=== PATIENT | male | born 1950 | race Caucasian/White ===

== ENCOUNTER 2021-03-22 09:52 | Emergency (ER) | payer MEDICARE, BC ==
[2021-03-22 12:21] LABS: CORONAVIRUS COVID-19 NAA NEGATIVE (NEGATIVE)
[2021-03-22 12:50] VITALS: BP 126/98; PULSE 114
== END 2021-03-22 12:56 | disposition home or self-care (01) ==
LOC: DL.ED 09:52
DX: J06.9 Acute upper respiratory infection, unspecified (principal); Z88.5 Allergy status to narcotic agent; Z88.8 Allergy status to other drugs, medicaments and biological substances; Z72.0 Tobacco use; Z79.899 Other long term (current) drug therapy; Z20.822 Contact with and (suspected) exposure to COVID-19
CPT/HCPCS: 0240U; 87081; 87430; 99283

== ENCOUNTER 2023-06-01 08:53 | Day surgery (SDC) | payer MEDICARE, BC ==
[2023-06-01] MEDS ORDERED: Sodium Chloride 0.9% 10 ML Syringe FLUSH PRN (09:00)
[2023-06-01] MEDS ORDERED: Acetaminophen/Codeine 300-30 MG Tab PO PRN (09:00)
[2023-06-01] MEDS ORDERED: Ondansetron 4 MG/2 ML SDV IVPUSH PRN (09:00)
[2023-06-01] MEDS ORDERED: Acetaminophen 325 MG Tab PO PRN (09:00)
[2023-06-01] MEDS: Proparacaine 0.5% Ophth Soln 15 ML Bottle EYELF ONE ×2 (09:01→09:44)
[2023-06-01] MEDS: Moxifloxacin 0.5% Ophth Soln 3 ML Bottle EYELF ONE (09:02)
[2023-06-01] MEDS: Povidone-Iodine 5% Sterile Ophth Soln 30 ML Bottle EYELF ONE ×2 (09:03→09:44)
[2023-06-01] MEDS: Phenylephrine 10% Ophth Soln 5 ML Bot EYELF ONE (09:04)
[2023-06-01] MEDS: Tropicamide 1% Ophth Soln 15 ML Bottle EYELF ONE (09:04)
[2023-06-01] MEDS: Cataract Ophth Solution EYELF ONE (09:06)
[2023-06-01] MEDS: Timolol Maleate 0.5% Ophth Soln 5 ML Bottle EYELF ONE (09:06)
[2023-06-01] MEDS: Diclofenac Sodium 0.1% Ophth Soln 5 ML Bottle EYELF ONE (09:45)
[2023-06-01] MEDS: Apraclonidine 0.5% Ophth Soln 5 ML Bot EYELF ONE (09:45)
[2023-06-01] MEDS: Dexamethasone/Neomycin/Polymyxin B Ophth Oint 3.5 GM Tube EYELF ONE (09:45)
[2023-06-01] MEDS: Lidocaine 1% 30 ML SDV INJECT ONE (09:45)
[2023-06-01] MEDS: Vancomycin 500 MG SDV EYELF ONE (09:45)
[2023-06-01 11:57] VITALS: BP 145/81; PULSE 66
== END 2023-06-01 10:35 | disposition home or self-care (01) ==
LOC: DL.SDS 08:53
PROVIDERS: ATTEND Ophthalmology
DX: H25.812 Combined forms of age-related cataract, left eye (principal); I10 Essential (primary) hypertension; E78.5 Hyperlipidemia, unspecified; F17.210 Nicotine dependence, cigarettes, uncomplicated; Z79.899 Other long term (current) drug therapy; Z88.5 Allergy status to narcotic agent; Z88.8 Allergy status to other drugs, medicaments and biological substances
CPT/HCPCS: A9270-GY; J3370; J3490; V2787-GY

== ENCOUNTER 2023-06-15 06:54 | Day surgery (SDC) | payer MEDICARE, BC ==
[2023-06-15] MEDS ORDERED: Acetaminophen/Codeine 300-30 MG Tab PO PRN (07:00)
[2023-06-15] MEDS ORDERED: Sodium Chloride 0.9% 10 ML Syringe FLUSH PRN (07:00)
[2023-06-15] MEDS ORDERED: Acetaminophen 325 MG Tab PO PRN (07:00)
[2023-06-15] MEDS ORDERED: Ondansetron 4 MG/2 ML SDV IVPUSH PRN (07:00)
[2023-06-15 07:17] VITALS: PULSE 65
[2023-06-15] MEDS: Proparacaine 0.5% Ophth Soln 15 ML Bottle EYERT ONE ×2 (07:20→08:17)
[2023-06-15] MEDS: Moxifloxacin 0.5% Ophth Soln 3 ML Bottle EYERT ONE (07:22)
[2023-06-15] MEDS: Povidone-Iodine 5% Sterile Ophth Soln 30 ML Bottle EYERT ONE ×2 (07:22→08:17)
[2023-06-15] MEDS: Tropicamide 1% Ophth Soln 15 ML Bottle EYERT ONE (07:23)
[2023-06-15] MEDS: Phenylephrine 10% Ophth Soln 5 ML Bot EYERT ONE (07:23)
[2023-06-15] MEDS: Cataract Ophth Solution EYERT ONE (07:24)
[2023-06-15] MEDS: Timolol Maleate 0.5% Ophth Soln 5 ML Bottle EYERT ONE (07:24)
[2023-06-15] MEDS: Dexamethasone/Neomycin/Polymyxin B Ophth Oint 3.5 GM Tube EYERT ONE (08:18)
[2023-06-15] MEDS: Lidocaine 1% 30 ML SDV INJECT ONE (08:18)
[2023-06-15] MEDS: Apraclonidine 0.5% Ophth Soln 5 ML Bot EYERT ONE (08:18)
[2023-06-15] MEDS: Diclofenac Sodium 0.1% Ophth Soln 5 ML Bottle EYERT ONE (08:18)
[2023-06-15] MEDS: Vancomycin 500 MG SDV EYERT ONE (08:18)
[2023-06-15 08:46] VITALS: BP 158/83
== END 2023-06-15 08:52 | disposition home or self-care (01) ==
LOC: DL.SDS 06:54
PROVIDERS: ATTEND Ophthalmology
DX: H26.8 Other specified cataract (principal); I25.10 Atherosclerotic heart disease of native coronary artery without angina pectoris; I10 Essential (primary) hypertension; E78.5 Hyperlipidemia, unspecified; F17.210 Nicotine dependence, cigarettes, uncomplicated; Z88.8 Allergy status to other drugs, medicaments and biological substances; Z88.5 Allergy status to narcotic agent; Z79.899 Other long term (current) drug therapy
CPT/HCPCS: 66982; A9270; J3370; J3490

== ENCOUNTER 2023-09-29 14:50 | Emergency (ER) | payer MEDICARE, BC ==
[2023-09-29 14:34] LABS: BASOPHILS PERCENT AUTO 0.6 % (0.0-1.0); EOSINOPHILS PERCENT AUTO 1.4 % (1.0-3.0); LYMPHOCYTES PERCENT AUTO 18.3 % (20.5-50.1); MEAN CORPUSCULAR HEMOGLOBIN 38.3 pg (27.0-34.0); MEAN CORPUSCULAR HGB CONC 31.9 g/dL (33.0-35.0); MONOCYTES PERCENT AUTO 9.3 % (2-8); NEUTROPHILS PERCENT AUTO 70.4 % (42.2-75.2); PLATELET COUNT,PLT 148 10^3/uL (150-450); RED BLOOD CELL COUNT 1.15 10^6/uL (4.6-6.2); WHITE BLOOD CELL COUNT,WBC 10.7 10^3/uL (5.0-10.0)
[2023-09-29] MEDS: Sodium Chloride 0.9% 500 ML IV SCH ×2 (14:39→15:50)
[2023-09-29 14:58] LABS: ALBUMIN 2.4 g/dL (3.4-5.0); ANION GAP 20.5 mEq/L (7-13); BILIRUBIN TOTAL 0.4 mg/dL (0.2-1.0); BUN/CREATININE RATIO 25.5 (No establ ref range); CALCIUM 8.4 mg/dL (8.5-10.1); CREATININE 1.96 mg/dL (0.70-1.30); EST CRCL DRUG DOSING (CG) 31.99 mL/min; POTASSIUM,K 3.5 mmol/L (3.5-5.1); PROTEIN TOTAL,TP 5.6 g/dL (6.4-8.2)
[2023-09-29 14:59] LABS: HEMATOCRIT 13.8 % (40.0-54.0); HEMOGLOBIN 4.4 g/dL (14.0-18.0)
[2023-09-29 15:02] LABS: A/G RATIO 0.75
[2023-09-29 15:06] LABS: INR 1.1 (0.9-1.2); PROTHROMBIN TIME 11.6 SEC (9.0-12.0)
[2023-09-29 16:12] LABS: APPEARANCE,URINE CLEAR (CLEAR); BILIRUBIN,URINE NEGATIVE (NEGATIVE); COLOR,URINE YELLOW (YELLOW); GLUCOSE,URINE NEGATIVE (NEGATIVE); KETONES,URINE NEGATIVE (NEGATIVE); LEUKOCYTE ESTERASE,URINE NEGATIVE (NEGATIVE); NITRITE,URINE NEGATIVE (NEGATIVE); OCCULT BLOOD,URINE SMALL (NEGATIVE); PH,URINE 6.5 (5.0-9.0); PROTEIN,URINE NEGATIVE (NEGATIVE); UROBILINOGEN,URINE 0.2 mg/dL (0.2-1.0)
[2023-09-29 16:20] LABS: WBC,URINE NOT SEEN /HPF (0-5/HPF)
[2023-09-29 16:21] LABS: BACTERIA,URINE RARE /HPF (0-FEW/HPF); EPITHELIAL CELLS,URINE RARE /HPF (NOT SEEN)
[2023-09-29] MEDS: fentaNYL 100 MCG/2 ML SDV IVPUSH ONE (16:54)
[2023-09-29 17:02] VITALS: BP 104/56; PULSE 85
== END 2023-09-29 16:55 ==
LOC: DL.ED 14:50
DX: D64.9 Anemia, unspecified (principal); I10 Essential (primary) hypertension; E78.00 Pure hypercholesterolemia, unspecified; J44.9 Chronic obstructive pulmonary disease, unspecified; Z86.16 Personal history of COVID-19; Z79.899 Other long term (current) drug therapy; Z79.891 Long term (current) use of opiate analgesic; Z88.5 Allergy status to narcotic agent; Z88.8 Allergy status to other drugs, medicaments and biological substances
CPT/HCPCS: 36415; 36430; 71045; 80053; 81001; 82272; 84484; 85025; 85610; 86850; 86900; 86901; 86920; 86922; 87040; 93005; 93010; 96374; 99285; J3010; J7030; P9016

== ENCOUNTER 2023-11-29 11:41 | Emergency (ER) | payer MEDICARE, BC ==
[2023-11-29] MEDS ORDERED: Sodium Chloride 0.9% 10 ML Syringe FLUSH PRN (11:50)
[2023-11-29 12:03] VITALS: BP 117/71; PULSE 65
== END 2023-11-29 12:05 | disposition left against medical advice (07) ==
LOC: DL.ED 11:41
DX: R53.1 Weakness (principal); R42 Dizziness and giddiness; I25.10 Atherosclerotic heart disease of native coronary artery without angina pectoris; I25.2 Old myocardial infarction; I10 Essential (primary) hypertension; I48.91 Unspecified atrial fibrillation; E78.00 Pure hypercholesterolemia, unspecified; J44.9 Chronic obstructive pulmonary disease, unspecified; E03.9 Hypothyroidism, unspecified; Z95.1 Presence of aortocoronary bypass graft; Z79.899 Other long term (current) drug therapy; Z79.82 Long term (current) use of aspirin; Z79.01 Long term (current) use of anticoagulants; Z88.8 Allergy status to other drugs, medicaments and biological substances; Z88.5 Allergy status to narcotic agent; Z53.29 Procedure and treatment not carried out because of patient's decision for other reasons
CPT/HCPCS: 93005; 99284